=== PATIENT | male | born 1975 | race Caucasian/White ===

== ENCOUNTER 2019-06-12 15:28 | Emergency (ER) | payer SELFPAY ==
[~2019-06-12] VITALS: Ht 167.6 cm; Wt 97.5 kg
[2019-06-12 15:36] VITALS: Ht 167.6 cm; Wt 97.5 kg
[2019-06-12 18:12] VITALS: BP 130/88
== END 2019-06-12 18:12 | disposition home or self-care (01) ==
LOC: ED 15:28
DX: F41.9 Anxiety disorder, unspecified (principal)